=== PATIENT | female | born 1980 | race African-American/Black ===

== ENCOUNTER 2017-12-26 03:01 | Inpatient (IN) | payer SELFPAY ==
[~2017-12-26] VITALS: Ht 170.2 cm; Wt 117.1 kg
[2017-12-26 04:38] VITALS: BP 142/85; PULSE 104; RESP 18; TEMP 98.2; O2SAT 97
[2017-12-26] MEDS ORDERED: hydrOXYzine HCL 50 MG TAB PO PRN (05:15)
[2017-12-26] MEDS ORDERED: LORazepam 1 MG TAB PO PRN (05:15)
[2017-12-26] MEDS ORDERED: diphenhydrAMINE HCL 50 MG/ML VIAL - HS PRN IM (05:15)
[2017-12-26] MEDS ORDERED: LORazepam 2 MG/ML VIAL IM PRN (05:15)
[2017-12-26] MEDS ORDERED: MAGNESIUM HYDROXIDE SUSP 30 ML CUP PO PRN (05:15)
[2017-12-26] MEDS ORDERED: diphenhydrAMINE HCL 50 MG/ML VIAL IM PRN (05:15)
[2017-12-26] MEDS ORDERED: diphenhydrAMINE HCL 50 MG CAP PO PRN (05:15)
[2017-12-26] MEDS ORDERED: diphenhydrAMINE HCL 50 MG CAP - HS PRN PO (05:15)
[2017-12-26] MEDS ORDERED: ALUMINUM/MAGNESIUM/SIMETH 30 ML CUP PO PRN (05:15)
[2017-12-26] MEDS ORDERED: PADIMATE (CHAPSTICK) 4.5 GM TUBE TOPICAL PRN (09:00)
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
[2017-12-26] MEDS: NORETHINDRONE ACETATE PO SCH (16:00)
[2017-12-26] MEDS: ETHINYL ESTRADIOL PO SCH (16:00)
[2017-12-26 17:47] LABS: AUTOMATED NEUTROPHIL # 2.8 TH/MM3 (1.8-7.7); BASOPHIL % 0.6 % (0.0-2.0); EOSINOPHIL # 0.3 TH/MM3 (0-0.4); EOSINOPHIL % 4.8 % (0.0-4.0); HEMATOCRIT 34.2 % (35.0-46.0); HEMOGLOBIN 11.1 GM/DL (11.6-15.3); LYMPH % 42.7 % (9.0-44.0); LYMPHOCYTE # 2.6 TH/MM3 (1.0-4.8); MEAN CELL VOLUME 84.7 FL (80.0-100.0); MEAN CORPUSCULAR HEMOGLOBIN 27.5 PG (27.0-34.0); MEAN CORPUSCULAR HGB CONC 32.5 % (32.0-36.0); MONO % 5.5 % (0.0-8.0); MONOCYTE # 0.3 TH/MM3 (0-0.9); NEUT % 46.4 % (16.0-70.0); PLATELET COUNT 261 TH/MM3 (150-450); RED BLOOD COUNT 4.04 MIL/MM3 (4.00-5.30); RED CELL DISTRIBUTION WIDTH 14.7 % (11.6-17.2); WHITE BLOOD COUNT 6.1 TH/MM3 (4.0-11.0)
[2017-12-26 18:08] VITALS: BP 143/86; PULSE 93; RESP 18; TEMP 98.2; O2SAT 100
[2017-12-26] MEDS: traZODone HCL 50 MG TAB PO PRN ×2 (21:25→21:27)
[2017-12-26] MEDS: ACETAMINOPHEN 325 MG TAB PO PRN (21:26)
[2017-12-27 05:06] VITALS: BP 125/63; PULSE 87; RESP 18; TEMP 98; O2SAT 97
[2017-12-27] MEDS: ETHINYL ESTRADIOL PO SCH (09:00)
[2017-12-27] MEDS: NORETHINDRONE ACETATE PO SCH (09:00)
[2017-12-27] MEDS: [UNRECOGNIZED DRUG - OTHER] PO SCH (09:00)
[2017-12-27] MEDS: DESVENLAFAXINE PO SCH (09:00)
[2017-12-27] MEDS: ACETAMINOPHEN 325 MG TAB PO PRN ×2 (12:21→21:10)
--- NOTE | 2017-12-27 15:27 | HHI.PYPN ---
Subjective Chief Complaint: suicidal ideation Remarks Pt seen and discussed with staff. She was admitted for suicidal ideations and depressions. She has been anxious and depressed. She has been out in day room, but interactions with others are minimal. She denies SI today. Mental Status Examination Appearance: Appropriate Consciousness: Alert Orientation: x4 Motor Activity: Other (no motor abnormalities noted) Speech: Unremarkable Language: Adequate Fund of Knowledge: Adequate Attention and Concentration: Adequate Memory: Unremarkable Mood: Other (depressed) Affect: Other (consistent with mood) Thought Process & Associations: Intact, Logical, Linear Thought Content: Appropriate Hallucination Type: None Delusion Type: None Suicidal Ideation: No Suicidal Plan: No Suicidal Intention: No Homicidal Ideation: No Homicidal Plan: No Homicidal Intention: No Insight: Fair Judgment: Impulsive Results Labs Test 12/26/17 17:27 White Blood Count 6.1 TH/MM3 Red Blood Count 4.04 MIL/MM3 Hemoglobin 11.1 GM/DL Hematocrit 34.2 % Mean Corpuscular Volume 84.7 FL Mean Corpuscular Hemoglobin 27.5 PG Mean Corpuscular Hemoglobin Concent 32.5 % Red Cell Distribution Width 14.7 % Platelet Count 261 TH/MM3 Mean Platelet Volume 8.0 FL Neutrophils (%) (Auto) 46.4 % Lymphocytes (%) (Auto) 42.7 % Monocytes (%) (Auto) 5.5 % Eosinophils (%) (Auto) 4.8 % Basophils (%) (Auto) 0.6 % Neutrophils # (Auto) 2.8 TH/MM3 Lymphocytes # (Auto) 2.6 TH/MM3 Monocytes # (Auto) 0.3 TH/MM3 Eosinophils # (Auto) 0.3 TH/MM3 Basophils # (Auto) 0.0 TH/MM3 CBC Comment DIFF FINAL Differential Comment Thyroid Stimulating Hormone 3rd Gen 0.726 uIU/ML Vitals/IOs Vital Signs Date Time Temp Pulse Resp B/P (MAP) Pulse Ox O2 Delivery O2 Flow Rate FiO2 12/27/17 05:06 98.0 87 18 125/63 (83) 97 Assessment & Plan Problem List: (1) Adjustment disorder with depressed mood ICD Codes: F43.21 - Adjustment disorder with depressed mood Assessment & Plan Continue current tx plan Estimated LOS: days Justification for Cont. Inpt. monitoring for safety Request HC Surrog/Guard Advoc?: Jud Shaffer MD Dec 27, 2017 15:27
[2017-12-27 16:39] VITALS: BP 136/74; PULSE 90; RESP 18; TEMP 98.2; O2SAT 99
[2017-12-27] MEDS: traZODone HCL 50 MG TAB PO PRN (21:10)
[2017-12-28] MEDS: NORETHINDRONE ACETATE PO SCH (08:39)
[2017-12-28] MEDS: ETHINYL ESTRADIOL PO SCH (08:39)
[2017-12-28] MEDS: [UNRECOGNIZED DRUG - OTHER] PO SCH (08:39)
[2017-12-28] MEDS: DESVENLAFAXINE PO SCH (08:39)
[2017-12-28] MEDS: ACETAMINOPHEN 325 MG TAB PO PRN (08:43)
[2017-12-28] MEDS ORDERED: PRIS50TA PO (14:41)
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
== END 2017-12-28 16:05 | disposition home or self-care (01) | DRG 881 ==
LOC: EDSEX → H260 04:32
PROVIDERS: ADMIT Psychiatry & Neurology Psychiatry; ATTEND Psychiatry & Neurology Psychiatry
DX: F43.21 Adjustment disorder with depressed mood (principal); R45.851 Suicidal ideations; F41.9 Anxiety disorder, unspecified; Z81.8 Family history of other mental and behavioral disorders; Z91.410 Personal history of adult physical and sexual abuse
CPT/HCPCS: 84443; 85025